=== PATIENT | male | born 1955 | race Caucasian/White ===

== ENCOUNTER 2017-11-28 11:52 | Observation (INO) ==
[2017-11-28] MEDS ORDERED: Nitroglycerin 1 INCH/GM PACKET TP ONE (11:58)
[2017-11-28] MEDS ORDERED: Ondansetron 4 MG/2 ML VIAL IVP ONE (11:58)
[2017-11-28] MEDS ORDERED: Aspirin 81 MG TAB.CHEW PO ONE (11:58)
--- NOTE | 2017-11-28 12:06 | Emergency Department Note ---
Disposition Clinical Impression: Chest pain Qualifiers: Chest pain type: precordial pain Qualified Code(s): R07.2 - Precordial pain Disposition: Admitted As Inpatient Condition: Fair Instructions: Chest Pain (ED), Against Medical Advice (ED) Reasons to Return/Additional Instructions: You have declined inpatient observation, further ER observation or transfer. A heart attack or heart problem has not been entirely ruled out. Your welcome to return at any time for reevaluation. Fell your existing prescriptions and start with your usual dosages. Blood pressure screening: When you had your blood pressure taken, if the top number was greater than 120 or the bottom number was greater than 80, I recommend that you call your primary care provider or a physician of your choice this week to arrange follow-up for further evaluation of your blood pressure. Elevated blood pressures which goes untreated can lead to stroke, heart attack, kidney failure and other life-threatening diseases. If you have an EKG and/or x-ray reading made in the emergency department, it will be reviewed by a pack master and/or radiologist. If this review changes your diagnosis or treatment, you will be contacted at the phone number you provided. If you were prescribed for outpatient testing: Please call to schedule an appointment for your test. If you have been prescribed an antibiotic: Take it as instructed until it is all finished. If you cannot tolerate that medication for some reason, call your doctor for a replacement. If you had a specimen collected for culture, a culture report takes 48-72 hours to generate. You will be contacted if a change in treatment is needed. Return if your condition worsens or if you have severe pain, fever, vomiting or difficulty breathing. If you have received or been prescribed a medication that may cause drowsiness ( tramadol, Phenergan, trazodone, diazepam, lorazepam, hydroxyzine, Xanax, hydrocodone, oxycodone, codeine, or any others) do not drive, drink alcohol, or operate machinery that requires you to be alert for at least 8 hours after taking that medication. Smoking is associated with many medical risks and, if you smoke, we recommend that you contact your primary care provider to discuss smoking cessation options. If you need to find a physician: Go to [email or web address] Or call: [facility], [facility], [facility], Referrals: NONE,PCP [Primary Care Provider] - [facility] [Outside] [facility] [Outside] Forms: ED Satisfaction Letter Chest Pain HPI - General Chief Complaint: ED Chest Pain Stated Complaint: CHEST PAIN Time Seen by Provider: 11/28/17 11:54 Source: patient, EMS Mode of arrival: EMS Limitations: no limitations Vital Signs Reviewed: Yes Nursing Notes Reviewed: Yes - History of Present Illness HPI Narrative: Patient relates he has been having symptoms chest discomfort. States had some pain yesterday evening but persistent pain the last 2-3 hours with occasional sharp pains in his chest. He states this is similar to what he had a year ago when he ended up in [facility] in [place] and had a cardiac stent placed. He has had associated nausea and shortness of breath without diaphoresis. He reports that he has had a feeling of chills but no fever or cough. Denies lower extremity swelling, immobilization or injury. Denies any change in activity, strain or stimulant use. He relates he has been off his medications for 2 weeks because he "ran out". States he has refills but he did not think that they were that important. EMS reports they picked him up from a local hotel and they have subsequently found out that he had run out of money and was to leave his room in a hotel at noon today. He additionally had just been in [facility] for drug and alcohol rehabilitation and had left there within the last month. EMS did transmit an EKG 11:42 AM that demonstrated a sinus tachycardia with significant baseline artifact. He has evidence for a left anterior fascicular block. He has a axis of -60, UT interval 136 and a QT/QTC of 340/418. Do not see acute ST or T-wave changes to suggest any ischemia or infarction. This is on my interpretation. The patient reports he does have history of previous heart disease, hypertension, elevated cholesterol, smoking and a mother who had heart disease. He does not have history of diabetes, obesity nor DVT/PE. He relates he does have COPD and emphysema as well as chronic low back pain. Pt complaint: chest pain Onset (ago): hour(s) Duration: constant, gradually worsening Onset: during rest Pain Location: substernal Severity: moderate Severity scale (1-10): 7 Quality: aching, sharp Pain Radiation: none Improves with: nothing Worsens with: nothing Associated symptoms: Reports: nausea, dyspnea. Denies: vomiting, diaphoresis, syncope, palpitations, fever, cough, leg swelling Treatments prior to arrival chest pain: oxygen - Related Data Home Medications Medication Instructions Recorded Confirmed Amlodipine Besylate 10 mg PO DAILY 11/17/17 11/28/17 Aspirin [Lo-Dose Aspirin EC] 81 mg PO DAILY 11/17/17 11/28/17 Atorvastatin Calcium 80 mg PO DAILY 11/17/17 11/28/17 Isosorbide DInitrate [Isosorbide 30 mg PO BID 11/17/17 11/28/17 Dinitrate] Metoprolol Tartrate [Lopressor] 25 mg PO BID 11/17/17 11/28/17 Previous Rx's Medication Instructions Recorded Albuterol Sulfate [Albuterol 2 puff IH Q4HR #1 hfa.aer.ad 11/17/17 Inhaler] Allergies Allergy/AdvReac Type Severity Reaction Status Date / Time No Known Allergies Allergy Verified 11/17/17 12:37 All systems ED: reviewed and negative except as stated. Chest Pain PMH - Past Medical History Medical history: Reports: COPD, coronary artery disease, hyperlipidemia, hypertension, other (Chronic low back pain). Denies: cardiomyopathy, diabetes Surgical history: Reports: angioplasty/stent, herniorrhaphy Psychiatric history: Reports: no psych history - Social History Smoking Status: Current every day smoker Alcohol use: Reports: heavy, recent Drug use: Reports: opiates Physical Exam - General Limitations: no limitations General appearance: alert, anxious - Head Head exam: atraumatic, normocephalic, normal inspection - Eye Eye exam: Present: normal appearance, PERRL, EOMI. Absent: conjunctival injection - ENT ENT exam: normal exam, normal oropharynx, mucous membranes moist - Neck Neck exam: Present: normal inspection, full ROM, trachea midline - Chest Chest inspection: Present: normal inspection, symmetric chest wall rise. Absent : tenderness - Respiratory Respiratory exam: Present: normal lung sounds bilaterally. Absent: respiratory distress, wheezes, prolonged expiratory phase - Cardiovascular Cardiovascular exam: Present: regular rate, normal rhythm, normal heart sounds - Abdominal Exam Abdominal exam: Present: soft, Non-Tender, normal bowel sounds. Absent: tenderness, distention, guarding, rebound, rigidity - Extremities Exam Extremities exam: Present: normal inspection, full ROM, normal capillary refill. Absent: tenderness, pedal edema, calf tenderness - Expanded Lower Extremity Exam Neurovascular/Tendon exam: Present: normal capillary refill. Absent: motor deficit, sensory deficit, tendon deficit Gait: not tested/not observed - Back Exam Back exam: Present: normal inspection, full ROM. Absent: tenderness - Neurological Exam Neurological exam: Present: alert, oriented X3 - Psychiatric Psychiatric exam: Present: normal affect, normal mood, anxious - Skin Skin exam: Present: warm, dry, intact, normal color. Absent: cyanosis, diaphoresis, pallor Course Course Narrative: 1245: I have spoken to the [facility] and they do not have any telemetry beds. When I have gone to talk to the patient's about this is saying that she thinks it is just the stress of the day and refuses to stay in the hospital. I spoken to him about his current results and they did not guarantee that he is not having a myocardial event. He states that he is just going to go back to his hotel room and rest. He understands that the progress of heart disease could lead to disability and and is able to articulate his back. He indicates a Guillermo to return if his symptoms are worsening. States he is feeling improved but still having some pain at about a 3-5 on a scale of 1-10. 1300: Patient has re-thought his decision to leave AMA. I have contacted to Dr. Jansen who is agreeable with observing at this facility if we do a repeat troponin and his remaining at 0.03 or less. A repeat troponin has been written for 1:30. 1523: The troponin had to be redrawn and has returned at 0.03. Patient is coordinated to observation at this facility. Vital Signs Temperature 99.0 F 11/28/17 11:54 Pulse Rate 99 11/28/17 11:54 Respiratory Rate 17 11/28/17 11:54 Blood Pressure 164/120 11/28/17 11:54 O2 Sat by Pulse Oximetry 99 11/28/17 11:54 Temperature 99.0 F 11/28/17 11:54 Pulse Rate 88 11/28/17 13:57 Respiratory Rate 17 11/28/17 13:57 Blood Pressure 123/77 11/28/17 13:57 O2 Sat by Pulse Oximetry 96 11/28/17 13:57 Oxygen Delivery Oxygen Delivery Nasal Cannula Chest Pain - Differential Diagnosis Likely: unstable angina pectoris, atypical chest pain, costalchondritis, chest pain - Medical Records Medical records reviewed: Yes I reviewed the patient's medical records. - Lab Data Lab results reviewed: Yes I reviewed the patient's lab results. Result diagrams: 11/28/17 12:05 11/28/17 12:05 Lab Results 11/28/17 11/28/17 11/28/17 Range/Units 12:05 12:05 12:05 WBC (4.3-11.1) K/mcL RBC (4.19-5.50) M/mcL Hgb (12.9-16.9) g/dL Hct (37.5-50.1) % MCV (83.0-100.0) fL MCH (28.0-33.3) pg MCHC (31.6-35.5) g/dL RDW (11.5-14.5) % Plt Count (140-400) K/mcL MPV (9.4-12.4) fL Immature Gran % (0-4) % Seg Neutrophils % % Lymphocytes % % Monocytes % % Eosinophils % % Basophils % % Neutrophils # (1.6-8.9) K/mcL Lymphocytes # (0.6-4.6) K/mcL Monocytes # (0.0-1.3) K/mcL Eosinophils # (0.0-0.6) K/mcL Basophils # (0.0-0.2) K/mcL PT 11.0 (9.4-12.1) Seconds INR 1.0 APTT 30.8 (26.0-36.0) Seconds Sodium (136-145) mEq/L Potassium (3.5-5.1) mEq/L Chloride (98-107) mEq/L Carbon Dioxide (23-29) mEq/L BUN (8-23) mg/dL Creatinine (0.70-1.30) mg/dL Est GFR ( Amer) (> 60) Est GFR (Non-Af Amer) (> 60) BUN/Creatinine Ratio (6-26) Glucose (70-105) mg/dL Calculated Osmolality (280-300) Calcium (8.6-10.3) mg/dL Total Bilirubin 0.5 (0.3-1.0) mg/dL Direct Bilirubin 0.0 (0.0-0.2) mg/dL Indirect Bilirubin 0.5 (0.0-1.2) mg/dL AST 29 (13-39) Units/L ALT 59 H (7-52) Units/L Alkaline Phosphatase 89 (34-104) Units/L Troponin I (< 0.04) ng/mL B-Natriuretic Peptide 62 (Less than 100) pg/mL Serum Total Protein 7.3 (6.4-8.9) g/dL Albumin 4.7 (3.5-5.7) g/dL Globulin 2.6 (2.4-3.5) g/dL Albumin/Globulin Ratio 1.8 (1.1-2.2) Amylase 37 (29-103) Units/L Lipase (11-82) Units/L 11/28/17 11/28/17 11/28/17 Range/Units 12:05 12:05 12:05 WBC 6.5 (4.3-11.1) K/mcL RBC 4.28 (4.19-5.50) M/mcL Hgb 13.9 (12.9-16.9) g/dL Hct 40.4 (37.5-50.1) % MCV 94.4 (83.0-100.0) fL MCH 32.5 (28.0-33.3) pg MCHC 34.4 (31.6-35.5) g/dL RDW 16.2 H (11.5-14.5) % Plt Count 540 H (140-400) K/mcL MPV 9.5 (9.4-12.4) fL Immature Gran % 0.5 (0-4) % Seg Neutrophils % 58.7 % Lymphocytes % 22.5 % Monocytes % 17.2 % Eosinophils % 0.6 % Basophils % 0.5 % Neutrophils # 3.8 (1.6-8.9) K/mcL Lymphocytes # 1.5 (0.6-4.6) K/mcL Monocytes # 1.1 (0.0-1.3) K/mcL Eosinophils # 0.0 (0.0-0.6) K/mcL Basophils # 0.0 (0.0-0.2) K/mcL PT (9.4-12.1) Seconds INR APTT (26.0-36.0) Seconds Sodium 137 (136-145) mEq/L Potassium 3.8 (3.5-5.1) mEq/L Chloride 101 (98-107) mEq/L Carbon Dioxide 28 (23-29) mEq/L BUN 11 (8-23) mg/dL Creatinine 0.73 (0.70-1.30) mg/dL Est GFR ( Amer) > 60 (> 60) Est GFR (Non-Af Amer) > 60 (> 60) BUN/Creatinine Ratio 15 (6-26) Glucose 142 H (70-105) mg/dL Calculated Osmolality 286 (280-300) Calcium 9.8 (8.6-10.3) mg/dL Total Bilirubin (0.3-1.0) mg/dL Direct Bilirubin (0.0-0.2) mg/dL Indirect Bilirubin (0.0-1.2) mg/dL AST (13-39) Units/L ALT (7-52) Units/L Alkaline Phosphatase (34-104) Units/L Troponin I (< 0.04) ng/mL B-Natriuretic Peptide (Less than 100) pg/mL Serum Total Protein (6.4-8.9) g/dL Albumin (3.5-5.7) g/dL Globulin (2.4-3.5) g/dL Albumin/Globulin Ratio (1.1-2.2) Amylase (29-103) Units/L Lipase 28 (11-82) Units/L 11/28/17 11/28/17 Range/Units 12:05 13:30 WBC (4.3-11.1) K/mcL RBC (4.19-5.50) M/mcL Hgb (12.9-16.9) g/dL Hct (37.5-50.1) % MCV (83.0-100.0) fL MCH (28.0-33.3) pg MCHC (31.6-35.5) g/dL RDW (11.5-14.5) % Plt Count (140-400) K/mcL MPV (9.4-12.4) fL Immature Gran % (0-4) % Seg Neutrophils % % Lymphocytes % % Monocytes % % Eosinophils % % Basophils % % Neutrophils # (1.6-8.9) K/mcL Lymphocytes # (0.6-4.6) K/mcL Monocytes # (0.0-1.3) K/mcL Eosinophils # (0.0-0.6) K/mcL Basophils # (0.0-0.2) K/mcL PT (9.4-12.1) Seconds INR APTT (26.0-36.0) Seconds Sodium (136-145) mEq/L Potassium (3.5-5.1) mEq/L Chloride (98-107) mEq/L Carbon Dioxide (23-29) mEq/L BUN (8-23) mg/dL Creatinine (0.70-1.30) mg/dL Est GFR ( Amer) (> 60) Est GFR (Non-Af Amer) (> 60) BUN/Creatinine Ratio (6-26) Glucose (70-105) mg/dL Calculated Osmolality (280-300) Calcium (8.6-10.3) mg/dL Total Bilirubin (0.3-1.0) mg/dL Direct Bilirubin (0.0-0.2) mg/dL Indirect Bilirubin (0.0-1.2) mg/dL AST (13-39) Units/L ALT (7-52) Units/L Alkaline Phosphatase (34-104) Units/L Troponin I < 0.03 < 0.03 (< 0.04) ng/mL B-Natriuretic Peptide (Less than 100) pg/mL Serum Total Protein (6.4-8.9) g/dL Albumin (3.5-5.7) g/dL Globulin (2.4-3.5) g/dL Albumin/Globulin Ratio (1.1-2.2) Amylase (29-103) Units/L Lipase (11-82) Units/L - Radiology Data Radiology results reviewed: Yes I reviewed the patient's radiology results. Single view chest x-ray is performed. This does not demonstrate evidence for infiltrate, effusion, pneumothorax, foreign body or heart failure. Patient is mildly hyperinflated consistent with his COPD and emphysema. The cardiac silhouette is normal. I do not see abnormality to the osseous structures of the chest. This is on my interpretation. - EKG Data EKG attestation: Yes I reviewed and interpreted this EKG. EKG shows normal: sinus rhythm, axis, intervals, QRS complexes, ST-T waves Rate: normal (99) Interpretation: no acute changes, normal EKG (Moderate baseline artifact.) Heart Score - Score History: Moderately Suspicious EKG: Normal Age: 45-65 Risk Factors: Equal/Greater than 3 risk factor or history of atherosclerotic disease Troponin: Less than normal limit HEART Score Total: 4
[2017-11-28 12:22] LABS: Basophils % 0.5 %; Eosinophils % 0.6 %; Hematocrit 40.4 % (37.5-50.1); Hemoglobin 13.9 g/dL (12.9-16.9); Immature Granulocytes % 0.5 % (0-4); Lymphocytes # 1.5 K/mcL (0.6-4.6); Lymphocytes % 22.5 %; Mean Corpuscular HGB Conc 34.4 g/dL (31.6-35.5); Mean Corpuscular Hemoglobin 32.5 pg (28.0-33.3); Mean Corpuscular Volume 94.4 fL (83.0-100.0); Mean Platelet Volume 9.5 fL (9.4-12.4); Monocytes # 1.1 K/mcL (0.0-1.3); Monocytes % 17.2 %; Neutrophils # 3.8 K/mcL (1.6-8.9); Platelet Count 540 K/mcL (140-400); Red Blood Count 4.28 M/mcL (4.19-5.50); Red Cell Distribution Width 16.2 % (11.5-14.5); Segmented Neutrophils % 58.7 %
[2017-11-28 12:31] LABS: Activated Partial Thrombo Time 30.8 Seconds (26.0-36.0)
[2017-11-28 12:35] LABS: BUN/Creatinine Ratio 15 (6-26); Blood Urea Nitrogen 11 mg/dL (8-23); Calcium 9.8 mg/dL (8.6-10.3); Carbon Dioxide 28 mEq/L (23-29); Chloride 101 mEq/L (98-107); Glucose 142 mg/dL (70-105); Osmolality,Calculated 286 (280-300); Potassium 3.8 mEq/L (3.5-5.1); Sodium 137 mEq/L (136-145); eGFR For African Americans > 60 (> 60); eGFR For Non-African Americans > 60 (> 60)
[2017-11-28 12:36] LABS: Albumin 4.7 g/dL (3.5-5.7); Albumin/Globulin Ratio 1.8 (1.1-2.2); Bilirubin,Indirect 0.5 mg/dL (0.0-1.2); Bilirubin,Total 0.5 mg/dL (0.3-1.0); Globulin 2.6 g/dL (2.4-3.5); Total Protein 7.3 g/dL (6.4-8.9)
[2017-11-28] MEDS ORDERED: Naloxone 0.4 MG/ML INJ IVP PRN (15:47)
[2017-11-28] MEDS ORDERED: Ondansetron 4 MG/2 ML VIAL IVP PRN (15:47)
[2017-11-28] MEDS ORDERED: Acetaminophen 325 MG TABLET PO PRN (15:47)
[2017-11-28] MEDS ORDERED: MOM Conc 10 ML UD.LIQ PO PRN (15:47)
--- NOTE | 2017-11-28 17:54 | Internal Med History&Physical ---
Date of Encounter: 11/28/17 Time of Encounter: 17:15 Assessment and Plan (1) Chest pain Current visit: Yes Status: Acute Doubt myocardial ischemia/AL based on history and physical. Etiology is not obvious. Will order d-dimer and proceed with chest CT/CTA. Qualifiers: Chest pain type: precordial pain Qualified Code(s): R07.2 - Precordial pain (2) COPD (chronic obstructive pulmonary disease) Current visit: Yes Status: Acute Continue albuterol MDI. Will check room air oximetry prior to discharge Qualifiers: COPD type: unspecified COPD Qualified Code(s): J44.9 - Chronic obstructive pulmonary disease, unspecified Internal Medicine - H&P: HPI Chief complaint: Chest pain and dyspnea Admitted From: Emergency Dept Plans for Post Hospital Care: Home History of present illness: Mr. Camacho is a 62 year old male came to emergency room stating he had onset of discomfort in his chest approximately 8 PM last evening while at leisure. He did not take medication and the discomfort resolved spontaneously after 2 hours. It recurred approximately 0900 today while at leisure. He describes it as a "thumping" and sharp sensation in his mid chest. There was increased dyspnea but no significant cough. When the discomfort did not resolve after a few hours he came to emergency room. He was evaluated and admitted to [facility] floor for ongoing care needs. He states he had previous similar pain with a AL in 2016. A single stent was placed immediately post-AL and he was maintained on aspirin and Plavix for 1 year. Plavix was discontinued January 2017 and he has continued on aspirin 81 mg daily. He reports he has not taken aspirin in approximately 2 weeks. He denies DVT or pulmonary embolus. He denies heart failure or angina/anginal equivalents on exertion. He has history of hypertension. He last saw his fitness club manager approximate April 2017. Past Med Surg Social Fam HX - Past Medical History Medical history: COPD, coronary artery disease, hyperlipidemia, hypertension, other Psychiatric history: no psych history - Past Surgical History Surgical History: angioplasty/stent, herniorrhaphy - Social History Smoking Status: Current every day smoker Smokeless Tobacco Status: No Alcohol use: heavy, recent Drug use: opiates Internal Medicine - H&P: Meds Albuterol Sulfate [Albuterol Inhaler] 2 puff IH Q4HR #1 hfa.aer.ad 11/17/17 [Rx] Amlodipine Besylate 10 mg PO DAILY 11/17/17 [History] Aspirin [Lo-Dose Aspirin EC] 81 mg PO DAILY 11/17/17 [History] Atorvastatin Calcium 80 mg PO DAILY 11/17/17 [History] Isosorbide DInitrate [Isosorbide Dinitrate] 30 mg PO BID 11/17/17 [History] Metoprolol Tartrate [Lopressor] 25 mg PO BID 11/17/17 [History] 3 Allergy/AdvReac Type Severity Reaction Status Date / Time No Known Allergies Allergy Verified 11/17/17 12:37 All Systems PM: A 10-system review of systems was performed and is negative for pertinent findings except as documented above in the HPI. Review of systems: General: He states his weight has been stable past few months Cardiovascular: As per history of present illness Respiratory: He has smoked since age 15 up to 2 packs per day. His been diagnosed with COPD/emphysema but does not use home oxygen. He reports he is following with a blade grinder in [place] who told him he possibly has lung cancer and/or fungal disease. Reports a history of tuberculosis and took medications for 9 months. He last saw the blade grinder October 2017. He reports he has had pneumothorax involving both lungs at different times in the past related to trauma. GI: Denies disorders of his liver gallbladder or exocrine pancreas. He has had esophageal dilatation in the past : He has BPH but denies kidney or bladder disorders Neurologic: He denies large distribution strokes or seizures Endocrine: He has hyperlipidemia but denies diabetes or thyroid disease Hematology/oncology: He denies anemia or other internal malignancies other than possible lung cancer above Psychiatric: He has anxiety and depression but does not take medication at this time Musculoskeletal: He has degenerative disc disease, DJD, and chronic low back pain. He denies gout - Constitutional Vitals: Temp Pulse Resp BP Pulse Ox 98.5 F 81 16 139/83 94 11/28/17 15:53 11/28/17 15:53 11/28/17 15:53 11/28/17 15:53 11/28/17 16:18 Exam: Gen.: He is a well-developed well-nourished male lying in bed who appears in no acute distress HEENT: Head is atraumatic and normocephalic. Eyes: EOMI. There is no scleral icterus. He has anisocoria with left pupil larger than the right. Mouth: Mucosa is moist. Neck: Supple and nontender. There is no thyromegaly or adenopathy noted. Heart: Regular without murmurs gallops or ectopics Lungs: No wheezes or crackles are heard. Abdomen: Soft and nontender. No masses or guarding are noted. Extremities: There is no cyanosis edema or clubbing noted. Dorsalis pedis and posttibial pulses are 1-2 over 2 bilaterally. Neurologic: Mental status: He is talkative and good historian. Cranial nerves: Smile is symmetric. Forehead bilaterally. Tongue protrudes midline. EOMI. Motor: There is no pronator drift. Cerebellar: Finger to nose is intact bilaterally. Skin: Warm and dry Internal Med - H&P Results - Labs CBC & Chem 7: 11/28/17 12:05 11/28/17 12:05
--- NOTE | 2017-11-28 18:40 | Electrocardiograph Report ---
[address] [place], [place] [address] Test Date: 2017-11-28 Pat Name: Daniele Camacho Department: [id number] Room: [facility] Gender: M Thoracic Medicine Specialist: [id number] : 1955 Requested By: Mohit Robins Order Number: [id number] Reading MD: Enmanuel Junior MD Measurements Intervals [place] Rate: 99 P: 58 NH: 154 QRS: 3 QRSD: 104 T: 52 QT: 343 QTc: 399 Interpretive Statements SINUS RHYTHM BASELINE ARTIFACT Electronically Signed On 11-28-2017 18:39:30 EST by Enmanuel Junior MD
[2017-11-28] MEDS: *HR* OxyCODONE/APAP 5/325 TABLET PO PRN ×2 (19:40→23:42)
[2017-11-29] MEDS: *HR* OxyCODONE/APAP 5/325 TABLET PO PRN ×2 (03:55→07:57)
[2017-11-29 06:41] VITALS: BP 125/76
[2017-11-29] MEDS ORDERED: Aspirin Enteric Coated 81 MG Tablet PO SCH (09:00)
[2017-11-29] MEDS ORDERED: amLODIPine 5 MG TABLET PO SCH (09:00)
--- NOTE | 2017-11-29 10:00 | Discharge Summary ---
Date of Encounter: 11/29/17 Time of Encounter: 09:50 - Discharge Diagnosis (1) Chest pain Priority: Primary Status: Acute Qualifiers: Chest pain type: precordial pain Qualified Code(s): R07.2 - Precordial pain (2) COPD (chronic obstructive pulmonary disease) Priority: Secondary Status: Chronic Qualifiers: COPD type: unspecified COPD Qualified Code(s): J44.9 - Chronic obstructive pulmonary disease, unspecified - Discharge Medications Prescriptions: Naproxen 500 mg PO BIDWM #10 tablet Home Medications: Albuterol Sulfate [Albuterol Inhaler] 2 puff IH Q4HR #1 hfa.aer.ad 11/17/17 [Rx] Amlodipine Besylate 10 mg PO DAILY 11/17/17 [History] Aspirin [Lo-Dose Aspirin EC] 81 mg PO DAILY 11/17/17 [History] Atorvastatin Calcium 80 mg PO DAILY 11/17/17 [History] Isosorbide DInitrate [Isosorbide Dinitrate] 30 mg PO BID 11/17/17 [History] Metoprolol Tartrate [Lopressor] 25 mg PO BID 11/17/17 [History] Naproxen 500 mg PO BIDWM #10 tablet 11/29/17 [Rx] Allergies/Adverse Reactions: 3 Allergy/AdvReac Type Severity Reaction Status Date / Time No Known Allergies Allergy Verified 11/17/17 12:37 Procedures/tests Complete & Pending: Procedures Performed prior 72 hours Category Date Time Status CT chest w/o contrast [CT chest wo con] [CT] Stat Cat Scan 11/28/17 18:45 Completed Date of admission: 11/28/17 15:33 Primary care physician: PCP NONE Consults: 11/28/17 16:08 Consult to Inspector Packer [CONS] Routine Reason for SW Consult: patient homeless and has no money for scripts. has not had home meds in over 2 weeks. - Patient Status Disposition: Home, Self-Care Condition: Fair Functional capacity at discharge: independent ambulation Overall status at discharge: patient is progressing back to baseline - Discharge Instructions Follow Up With: NONE,PCP [Primary Care Provider] - 1 week - Diet and Activity Activity: resume usual activities as tolerated Diet: advance to your usual diet Hospital course: Mr. Camacho is a 62 year old male who came to emergency room stating he had onset of discomfort in his chest approximately 8 PM last evening while at leisure. He did not take medication and the discomfort resolved spontaneously after 2 hours. It recurred approximately 0900 the day of admission while at leisure. He describes it as a "thumping" and sharp sensation in his mid chest. There was increased dyspnea but no significant cough. When the discomfort did not resolve after a few hours he came to emergency room. He was evaluated and admitted to [facility] for ongoing care needs. Initial orders were written by the emergency room physician. I saw him on November 28 and performed the history and physical. When I saw him I did not think the pain was likely to be of myocardial ischemic origin. Repeat cardiac enzymes showed no evidence of myocardial damage. D-dimer returned in age adjusted normal range. Noncontrast chest CT was done and showed pulmonary nodules which he reports were previously known. No other acute pathology was seen to explain his chest pain. Etiology of pain was not determined with certainty. I felt he was safe for discharge home on November 29. He will follow with an [facility] PCP within one week. I will give him Naprosyn 500 mg twice a day for 5 days. I encouraged him to discontinue smoking. Room air oximetry will be checked on 6 minute walk prior to discharge. - Time Spent with Patient Total time spent providing and/or coordinating discharge services: - Constitutional Vitals: Temp Pulse Resp BP Pulse Ox 98.3 F 61 16 125/76 98 11/29/17 06:40 11/29/17 06:40 11/29/17 06:40 11/29/17 06:40 11/29/17 06:40
== END 2017-11-29 12:35 | disposition home or self-care (01) ==
LOC: EMEROOPIK 11:52 → INPPIK 11:52
PROVIDERS: ADMIT Emergency Medicine; ATTEND Internal Medicine